=== PATIENT | male | born 1995 | race Two or more races ===

== ENCOUNTER 2024-12-24 23:40 | Emergency (ER) | payer SELFPAY ==
[2024-12-24 23:44] VITALS: BP 119/66; PULSE 106; RESP 19; TEMP 36.7; O2SAT 98; BMI 25.0
[2024-12-25] VITALS: BMI 25.0
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
[2024-12-25 02:26] VITALS: BP 122/84; PULSE 100; RESP 16; TEMP 37; O2SAT 97
== END 2024-12-25 02:26 | disposition home or self-care (01) ==
PROVIDERS: Emergency Provider Emergency Medicine
DX: Z02.89 Encounter for other administrative examinations (principal)
CPT/HCPCS: 99281